=== PATIENT | male | born 1965 | race African-American/Black ===

== ENCOUNTER 2016-12-26 16:06 | Inpatient (IN) | payer SELFPAY ==
[~2016-12-26] VITALS: Ht 175.3 cm; Wt 109.4 kg
[2016-12-26] VITALS (25 sets, daily range): BP systolic 107–168; BP diastolic 58–102
[2016-12-26] MEDS ORDERED: ONDANSETRON HCL 4 MG/2 ML VIAL ONE (16:12)
[2016-12-26] MEDS ORDERED: MEPERIDINE HCL (25 MG/ML) 1ML VIAL ONE (16:12)
[2016-12-26] MEDS ORDERED: IODIXANOL 320MG/ML 100ML BTL IV ONE (16:22)
[2016-12-26] MEDS ORDERED: LIDOCAINE 2%HCL (LOCAL ANESTH.) INJ 20ML MDV ONE (16:23)
[2016-12-26] MEDS ORDERED: fentaNYL CITRATE 100 MCG/2 ML VL ONE (16:35)
[2016-12-26] MEDS ORDERED: diphenhdrAMINE HCL 50 MG/1 ML VL ONE (16:35)
[2016-12-26] MEDS ORDERED: ANGIOMAX 250 MG VIAL IV ONE ×2 (16:35→17:11)
[2016-12-26] MEDS ORDERED: methylPREDNISolone SOD SUCC 125 MG/2 ML VL ONE (16:35)
[2016-12-26] MEDS ORDERED: MIDAZOLAM HCL 1MG/1ML-2 ML VIAL ONE (16:36)
[2016-12-26] MEDS ORDERED: EPTIFIBATIDE INJ (2MG/ML) 10ML VIAL IV ONE (16:36)
[2016-12-26] MEDS ORDERED: SODIUM CHL 0.9% 50 ML ONE (16:36)
[2016-12-26] MEDS ORDERED: FAMOTIDINE (10MG/ML) 2ML VL IV ONE (16:38)
[2016-12-26] MEDS ORDERED: NOREPINEPHRINE BITARTRATE 250 ML IV ONE (16:52)
[2016-12-26] MEDS ORDERED: ATROPINE SULF 0.5 MG/5ML SYR ONE (16:59)
[2016-12-26 17:03] LABS: Albumin 3.3 g/dL (3.4-5.0); Bilirubin, Total 0.5 mg/dL (0.2-1.0); Calcium 8.8 mg/dL (8.5-10.1)
[2016-12-26] MEDS ORDERED: ASPirin 325 MG TAB ONE (17:06)
[2016-12-26] MEDS ORDERED: CLOPIDOGREL 300 MG TAB ONE (17:06)
[2016-12-26] MEDS ORDERED: SODIUM CHL 0.9% 100 ML ONE (17:11)
[2016-12-26 17:12] LABS: Basophils # (auto) 0.1 uL; Basophils % (auto) 0.7 % (0.0-2.0); CONDITION Y; DEFINITIVE SEE PRINTOUT; Eosinophils # (auto) 0.5 uL; Eosinophils % (auto) 3.1 % (0.0-7.0); Hematocrit 39.4 % (41.0-53.0); Hemoglobin 13.2 g/dL (13.5-17.5); Lymphocytes # (auto) 7.5 uL; Lymphocytes % (auto) 48.4 % (10.0-50.0); Mean Corpuscular Hgb Conc. 33.6 g/dL (32.0-36.0); Mean Corpuscular Volume 92.3 fL (80.0-100.0); Mean Platelet Volume 9.1 fL (7.4-10.4); Monocytes # (auto) 1.4 uL; Neutrophils % (auto) 38.8 % (37.0-80.0); Platelet Count (auto) 357 10^3/uL (140-450); Red Cell Distribution Width 13.8 % (11.6-16.0); White Blood Cell 15.5 10^3/uL (4.4-10.8)
[2016-12-26 17:25] LABS: INR 0.96 (0.9-1.15); Partial Thromboplastin Time 30.3 sec (22.64-33.71); Prothrombin Time 10.5 sec (9.37-12.3)
[2016-12-26 17:28] LABS: Potassium 3.2 mmol/L (3.5-5.1)
[2016-12-26] MEDS ORDERED: NITROGLYCERIN 0.4 MG SL TAB SL PRN (17:45)
[2016-12-26] MEDS ORDERED: MORPHINE SULF INJ 2 MG/ML SYRINGE 1ML IV PRN ×2 (17:45→19:30)
[2016-12-26] MEDS ORDERED: NOREPINEPHRINE BITARTRATE 250 ML IV SCH (17:45)
[2016-12-26] MEDS ORDERED: ONDANSETRON HCL 4 MG/2 ML VIAL IV PRN (18:00)
[2016-12-26] MEDS ORDERED: POTASSIUM CHL 20 Meq TABLET PO ONE ×2 (18:15→23:00)
[2016-12-26] MEDS: ATORVASTATIN 20 MG TAB PO SCH (22:24)
[2016-12-26] MEDS ORDERED: POTASSIUM CHL 10% (20 MEQ/15ML) ORAL SOLN PO ONE (23:00)
[2016-12-26 23:07] LABS: Magnesium 2.3 mg/dL (1.6-2.6)
[2016-12-26 23:11] LABS: B-Type Natriuretic Peptide 18.94 pg/mL (0-100)
[2016-12-26 23:12] LABS: Temperature: 24.1 C (20.0-25.0)
[2016-12-27] VITALS (95 sets, daily range): BP systolic 105–163; BP diastolic 61–104
[2016-12-27] MEDS ORDERED: POTASSIUM CHL 10% (20 MEQ/15ML) ORAL SOLN PO ONE (00:15)
[2016-12-27] MEDS: NITROGLYCERIN 50MG/250ML 250 ML IV SCH (02:39)
[2016-12-27 03:19] LABS: Basophils # (auto) 0 uL; Basophils % (auto) 0.1 % (0.0-2.0); CONDITION Y; Eosinophils # (auto) 0 uL; Hematocrit 37.9 % (41.0-53.0); Hemoglobin 12.7 g/dL (13.5-17.5); Lymphocytes # (auto) 0.8 uL; Lymphocytes % (auto) 6.7 % (10.0-50.0); Mean Corpuscular Hemoglobin 31.2 pg (28.0-32.0); Mean Corpuscular Hgb Conc. 33.4 g/dL (32.0-36.0); Mean Corpuscular Volume 93.4 fL (80.0-100.0); Mean Platelet Volume 8.1 fL (7.4-10.4); Monocytes # (auto) 0.1 uL; Monocytes % (auto) 0.6 % (0.0-12.0); Neutrophils # (auto) 11.1 uL; Neutrophils % (auto) 92.6 % (37.0-80.0); Platelet Count (auto) 297 10^3/uL (140-450)
[2016-12-27 03:43] LABS: Albumin 3.1 g/dL (3.4-5.0)
[2016-12-27 03:45] LABS: BUN/Creatinine Ratio 13.8
[2016-12-27 03:48] LABS: Bilirubin, Total 0.4 mg/dL (0.2-1.0); Total Protein 7.3 g/dL (6.4-8.2)
[2016-12-27] MEDS: HYDROmorphone HCL 2 MG/ML VL IV PRN ×4 (04:00→21:25)
[2016-12-27] MEDS ORDERED: POTASSIUM CHL 10% (20 MEQ/15ML) ORAL SOLN GT ONE (04:00)
[2016-12-27] MEDS ORDERED: FUROSEMIDE 20 MG/2 ML VIAL IV ONE (05:15)
[2016-12-27] MEDS ORDERED: FUROSEMIDE INJECTION 10 ML ONE (05:30)
[2016-12-27] MEDS: ENALAPRIL MALEATE 2.5 MG TAB PO SCH ×3 (06:00→22:00)
[2016-12-27 06:01] LABS: B-Type Natriuretic Peptide 62.78 pg/mL (0-100)
[2016-12-27 06:04] LABS: Temperature: 23.5 C (20.0-25.0)
[2016-12-27] MEDS: BOOST PLUS 8 ounce PO SCH ×3 (08:00→18:00)
[2016-12-27] MEDS: ASPirin 81 mg TAB PO SCH (09:52)
[2016-12-27] MEDS: CLOPIDOGREL BISULFATE 75 MG TAB PO SCH (09:53)
[2016-12-27] MEDS ORDERED: PANTOPRAZOLE SODIUM 40 MG/10 ML VIAL IV SCH (10:00)
[2016-12-27 11:02] LABS: BUN/Creatinine Ratio 15.9; Calcium 8.8 mg/dL (8.5-10.1); Magnesium 2.2 mg/dL (1.6-2.6)
[2016-12-27] MEDS ORDERED: KETOROLAC TROMETH 30 MG/ML 1ML VIAL IV ONE (11:30)
[2016-12-27 11:35] LABS: Potassium 4.6 mmol/L (3.5-5.1)
[2016-12-27] MEDS ORDERED: ALUM & MAG HYDROX-SIMETH LIQ(MAALOX) 30 ML PO PRN (19:00)
[2016-12-27] MEDS ORDERED: ALUM & MAG HYDROX-SIMETH LIQ(MAALOX) 30 ML PO ONE (19:00)
[2016-12-27] MEDS: ONDANSETRON HCL 4 MG/2 ML VIAL IV PRN (21:25)
[2016-12-27] MEDS: ATORVASTATIN 20 MG TAB PO SCH (22:23)
[2016-12-28] VITALS (73 sets, daily range): BP systolic 93–162; BP diastolic 48–107
[2016-12-28] MEDS: HYDROcodone-ACET 5/325MG TAB PO PRN ×2 (00:46→07:50)
[2016-12-28] MEDS: NITROGLYCERIN 50MG/250ML 250 ML IV SCH (02:15)
[2016-12-28 04:06] LABS: Basophils # (auto) 0 uL; Basophils % (auto) 0.2 % (0.0-2.0); CONDITION Y; Eosinophils # (auto) 0.1 uL; Eosinophils % (auto) 0.3 % (0.0-7.0); Hematocrit 38.3 % (41.0-53.0); Lymphocytes # (auto) 4.2 uL; Lymphocytes % (auto) 17.4 % (10.0-50.0); Mean Corpuscular Hemoglobin 31.4 pg (28.0-32.0); Mean Corpuscular Hgb Conc. 33.8 g/dL (32.0-36.0); Mean Corpuscular Volume 92.9 fL (80.0-100.0); Mean Platelet Volume 8.4 fL (7.4-10.4); Monocytes # (auto) 1.6 uL; Monocytes % (auto) 6.5 % (0.0-12.0); Neutrophils # (auto) 18.3 uL; Neutrophils % (auto) 75.6 % (37.0-80.0); Platelet Count (auto) 322 10^3/uL (140-450); Red Cell Distribution Width 13.6 % (11.6-16.0); White Blood Cell 24.2 10^3/uL (4.4-10.8)
[2016-12-28 04:48] LABS: BUN/Creatinine Ratio 14.1; Calcium 8.8 mg/dL (8.5-10.1); Magnesium 2.4 mg/dL (1.6-2.6); Potassium 3.9 mmol/L (3.5-5.1)
[2016-12-28] MEDS: BOOST PLUS 8 ounce PO SCH ×3 (08:00→18:00)
[2016-12-28] MEDS: PANTOPRAZOLE 40 MG TAB PO SCH (09:56)
[2016-12-28] MEDS: ASPirin 81 mg TAB PO SCH (09:56)
[2016-12-28] MEDS: CLOPIDOGREL BISULFATE 75 MG TAB PO SCH (09:56)
[2016-12-28] MEDS: ENALAPRIL MALEATE 2.5 MG TAB PO SCH ×2 (09:57→21:35)
[2016-12-28] MEDS: HYDROmorphone HCL 2 MG/ML VL IV PRN (12:20)
[2016-12-28] MEDS ORDERED: ZOLPIDEM TARTRATE 5 MG TAB PO PRN (12:30)
[2016-12-28] MEDS ORDERED: METOPROLOL TARTRATE 25 MG TAB PO ONE (12:30)
[2016-12-28] MEDS: ONDANSETRON HCL 4 MG/2 ML VIAL IV PRN (15:35)
[2016-12-28] MEDS: ATORVASTATIN 20 MG TAB PO SCH (21:34)
[2016-12-28] MEDS: METOPROLOL TARTRATE 25 MG TAB PO SCH (21:36)
[2016-12-28] MEDS ORDERED: PRAMIPEXOLE DIHYDROCHLORIDE MO 0.25 MG TAB PO SCH (22:00)
[2016-12-29 05:00] VITALS: BP 102/67
[2016-12-29 06:12] LABS: Basophils # (auto) 0.1 uL; Basophils % (auto) 0.3 % (0.0-2.0); CONDITION Y; Eosinophils # (auto) 0.3 uL; Eosinophils % (auto) 1.7 % (0.0-7.0); Hematocrit 41.9 % (41.0-53.0); Lymphocytes # (auto) 4.7 uL; Lymphocytes % (auto) 24.7 % (10.0-50.0); Mean Corpuscular Hemoglobin 31.2 pg (28.0-32.0); Mean Corpuscular Hgb Conc. 33.4 g/dL (32.0-36.0); Mean Corpuscular Volume 93.3 fL (80.0-100.0); Mean Platelet Volume 8.4 fL (7.4-10.4); Monocytes # (auto) 1.6 uL; Monocytes % (auto) 8.3 % (0.0-12.0); Neutrophils # (auto) 12.4 uL; Platelet Count (auto) 303 10^3/uL (140-450); Red Cell Distribution Width 13.8 % (11.6-16.0); White Blood Cell 19.1 10^3/uL (4.4-10.8)
[2016-12-29 06:31] LABS: Calcium 8.6 mg/dL (8.5-10.1)
[2016-12-29 06:33] LABS: BUN/Creatinine Ratio 16.9
[2016-12-29] MEDS: BOOST PLUS 8 ounce PO SCH ×2 (08:00→12:14)
[2016-12-29 08:43] LABS: Potassium 4.1 mmol/L (3.5-5.1)
[2016-12-29 09:00] VITALS: BP 114/68
[2016-12-29] MEDS: HYDROcodone-ACET 5/325MG TAB PO PRN (09:46)
[2016-12-29] MEDS: PANTOPRAZOLE 40 MG TAB PO SCH (09:46)
[2016-12-29] MEDS: ENALAPRIL MALEATE 2.5 MG TAB PO SCH (09:47)
[2016-12-29] MEDS: CLOPIDOGREL BISULFATE 75 MG TAB PO SCH (09:48)
[2016-12-29] MEDS: METOPROLOL TARTRATE 25 MG TAB PO SCH (09:48)
[2016-12-29] MEDS: ASPirin 81 mg TAB PO SCH (09:48)
[2016-12-29 12:28] VITALS: BP 114/68
[2016-12-29 13:00] VITALS: BP 101/52
== END 2016-12-29 15:04 | disposition home or self-care (01) | DRG 246 ==
LOC: ER 16:10 → CATH 16:56 → EDBD 16:56 → ICU WEST 16:57 → TELE-WESTW 12-28 21:05
PROVIDERS: ADMIT Internal Medicine Cardiovascular Disease; ATTEND Internal Medicine
PROC: 027034Z Dilation of Coronary Artery, One Artery with Drug-eluting Intraluminal Device, Percutaneous Approach (ICD-10-PCS; principal; 2016-12-26)
PROC: 4A023N7 Measurement of Cardiac Sampling and Pressure, Left Heart, Percutaneous Approach (ICD-10-PCS; 2016-12-26)
PROC: B2111ZZ Fluoroscopy of Multiple Coronary Arteries using Low Osmolar Contrast (ICD-10-PCS; 2016-12-26)
PROC: B2151ZZ Fluoroscopy of Left Heart using Low Osmolar Contrast (ICD-10-PCS; 2016-12-26)
DX: I21.3 ST elevation (STEMI) myocardial infarction of unspecified site (principal); I50.41 Acute combined systolic (congestive) and diastolic (congestive) heart failure; E44.1 Mild protein-calorie malnutrition; I25.10 Atherosclerotic heart disease of native coronary artery without angina pectoris; F41.9 Anxiety disorder, unspecified; F17.210 Nicotine dependence, cigarettes, uncomplicated; E88.09 Other disorders of plasma-protein metabolism, not elsewhere classified; E87.6 Hypokalemia; E78.5 Hyperlipidemia, unspecified; I25.82 Chronic total occlusion of coronary artery; E66.9 Obesity, unspecified; D63.8 Anemia in other chronic diseases classified elsewhere; Z79.82 Long term (current) use of aspirin; Z82.49 Family history of ischemic heart disease and other diseases of the circulatory system; Z83.3 Family history of diabetes mellitus; Z91.14 Patient's other noncompliance with medication regimen; I25.2 Old myocardial infarction; Z79.02 Long term (current) use of antithrombotics/antiplatelets; Z79.899 Other long term (current) drug therapy; Z68.35 Body mass index [BMI] 35.0-35.9, adult
CPT/HCPCS: 36415; 71010; 80048; 80053; 80061; 83036; 83735; 83880; 84439; 84443; 84481; 84484; 85025; 85610; 85730; 86850; 86900; 86901; 87070; 87081; 87205; 92928; 93005; 93306; 93458; 96374; 99152; C1874; C9113; J0461; J1885; J2250; J2405; J3490; Q9967

== ENCOUNTER 2017-05-01 16:49 | Emergency (ER) | payer SELFPAY ==
[~2017-05-01] VITALS: Ht 175.3 cm; Wt 104.3 kg
[2017-05-01 18:03] LABS: Basophils # (auto) 0.1 uL; Basophils % (auto) 0.7 % (0.0-2.0); Eosinophils # (auto) 0.5 uL; Eosinophils % (auto) 4.2 % (0.0-7.0); Hematocrit 36.6 % (41.0-53.0); Hemoglobin 12.2 g/dL (13.5-17.5); Lymphocytes # (auto) 4.9 uL; Lymphocytes % (auto) 43.4 % (10.0-50.0); Mean Corpuscular Hemoglobin 31.7 pg (28.0-32.0); Mean Corpuscular Hgb Conc. 33.5 g/dL (32.0-36.0); Mean Corpuscular Volume 94.7 fL (80.0-100.0); Mean Platelet Volume 7.1 fL (6.9-10.8); Monocytes # (auto) 0.7 uL; Monocytes % (auto) 6.6 % (0.0-12.0); Neutrophils # (auto) 5.1 uL; Neutrophils % (auto) 45.1 % (37.0-80.0); Nucleated Red Blood Cells % 0.1 %; Platelet Count (auto) 272 10^3/uL (140-450); Red Cell Distribution Width 13.5 % (11.8-14.3); White Blood Cell 11.3 10^3/uL (4.4-10.8)
[2017-05-01 18:22] LABS: Albumin 3.2 g/dL (3.4-5.0); Alkaline Phosphatase 85 U/L (45-117); Anion Gap 7 (5-15); Aspartate Aminotransferase 17 U/L (15-37); BUN/Creatinine Ratio 10.5; Bilirubin, Total 0.4 mg/dL (0.2-1.0); Blood Urea Nitrogen 8 mg/dL (7-18); Calcium 8.5 mg/dL (8.5-10.1); Carbon Dioxide 26 mmol/L (21-32); Chloride 108 mmol/L (98-107); GFR African American 137 mL/min; GFR Non-African American 114 mL/min; Glucose 124 mg/dL (74-106); Magnesium 2.3 mg/dL (1.6-2.6); Potassium 3.6 mmol/L (3.5-5.1); Sodium 141 mmol/L (136-145); Total Protein 7.3 g/dL (6.4-8.2)
[2017-05-01 20:19] LABS: Urine Bilirubin Negative (Negative); Urine Blood Negative /uL (Negative); Urine Color Yellow (Yellow); Urine Glucose Normal (Normal); Urine Ketone Negative (Negative); Urine Mucus FEW (None Seen); Urine Nitrite Negative (Negative); Urine RBC <1 /hpf (0 - 3); Urine Squamous Epithelial Cell FEW /hpf (<5); Urine pH 5.5 (5.0-8.0)
[2017-05-01 20:50] VITALS: BP 146/94
== END 2017-05-01 22:36 | disposition home or self-care (01) ==
LOC: ER 17:05
DX: R07.89 Other chest pain (principal); F17.210 Nicotine dependence, cigarettes, uncomplicated; I25.2 Old myocardial infarction; I10 Essential (primary) hypertension; E78.5 Hyperlipidemia, unspecified; Z86.73 Personal history of transient ischemic attack (TIA), and cerebral infarction without residual deficits; Z88.6 Allergy status to analgesic agent; Z76.0 Encounter for issue of repeat prescription; Z91.013 Allergy to seafood
CPT/HCPCS: 36415; 71020; 80053; 81001; 83735; 84484; 85025; 93005

== ENCOUNTER 2017-06-07 21:31 | Emergency (ER) | payer SELFPAY ==
[~2017-06-07] VITALS: Ht 175.3 cm; Wt 93.0 kg
[2017-06-07 21:38] VITALS: BP 145/90
[2017-06-07 22:19] LABS: Basophils # (auto) 0.1 uL; Basophils % (auto) 1.1 % (0.0-2.0); Eosinophils # (auto) 0.5 uL; Eosinophils % (auto) 5.8 % (0.0-7.0); Hematocrit 38.7 % (41.0-53.0); Hemoglobin 13.2 g/dL (13.5-17.5); Lymphocytes # (auto) 3.8 uL; Lymphocytes % (auto) 40.8 % (10.0-50.0); Mean Corpuscular Hemoglobin 32.1 pg (28.0-32.0); Mean Corpuscular Hgb Conc. 34.1 g/dL (32.0-36.0); Mean Corpuscular Volume 94.2 fL (80.0-100.0); Mean Platelet Volume 7.3 fL (6.9-10.8); Monocytes # (auto) 0.7 uL; Monocytes % (auto) 7.6 % (0.0-12.0); Neutrophils # (auto) 4.2 uL; Neutrophils % (auto) 44.7 % (37.0-80.0); Nucleated Red Blood Cells % 0.2 %; Platelet Count (auto) 281 10^3/uL (140-450); Red Cell Distribution Width 13.3 % (11.8-14.3); White Blood Cell 9.3 10^3/uL (4.4-10.8)
[2017-06-07 22:20] LABS: Urine Bilirubin Negative (Negative); Urine Blood Negative /uL (Negative); Urine Color Yellow (Yellow); Urine Glucose Normal (Normal); Urine Ketone Negative (Negative); Urine Mucus FEW (None Seen); Urine Nitrite Negative (Negative); Urine RBC <1 /hpf (0 - 3); Urine Squamous Epithelial Cell FEW /hpf (<5); Urine pH 5.5 (5.0-8.0)
[2017-06-07 22:31] LABS: Magnesium 2.3 mg/dL (1.6-2.6)
[2017-06-07 22:34] LABS: INR 0.97 (0.9-1.15); Partial Thromboplastin Time 30.3 sec (22.64-33.71); Prothrombin Time 10.6 sec (9.37-12.3)
[2017-06-07 22:54] LABS: Albumin 3.6 g/dL (3.4-5.0); BUN/Creatinine Ratio 14.3; Bilirubin, Total 0.6 mg/dL (0.2-1.0); Calcium 8.6 mg/dL (8.5-10.1); Potassium 3.7 mmol/L (3.5-5.1)
[2017-06-07 23:09] LABS: B-Type Natriuretic Peptide 19.5 pg/mL (0-100)
[2017-06-07 23:12] LABS: Temperature: 22.1 C (20.0-25.0)
== END 2017-06-08 00:18 | disposition left against medical advice (07) ==
LOC: ER 21:31
DX: R06.02 Shortness of breath (principal); Z53.21 Procedure and treatment not carried out due to patient leaving prior to being seen by health care provider
CPT/HCPCS: 36415; 71020; 80053; 81001; 83735; 83880; 84484; 85025; 85610; 85730; 93005

== ENCOUNTER 2017-06-14 12:00 | Emergency (ER) | payer SELFPAY ==
[~2017-06-14] VITALS: Ht 175.3 cm; Wt 97.5 kg
[2017-06-14 13:35] LABS: Basophils # (auto) 0.1 uL; Basophils % (auto) 1.2 % (0.0-2.0); Eosinophils # (auto) 0.4 uL; Eosinophils % (auto) 4.1 % (0.0-7.0); Hematocrit 39.2 % (41.0-53.0); Hemoglobin 13.2 g/dL (13.5-17.5); Lymphocytes # (auto) 3.3 uL; Lymphocytes % (auto) 34.8 % (10.0-50.0); Mean Corpuscular Hemoglobin 31.9 pg (28.0-32.0); Mean Corpuscular Hgb Conc. 33.8 g/dL (32.0-36.0); Mean Corpuscular Volume 94.6 fL (80.0-100.0); Monocytes # (auto) 0.7 uL; Monocytes % (auto) 7.1 % (0.0-12.0); Neutrophils % (auto) 52.8 % (37.0-80.0); Nucleated Red Blood Cells % 0.1 %; Platelet Count (auto) 278 10^3/uL (140-450); Red Blood Cells 4.14 10^6/uL (4.5-5.90); Red Cell Distribution Width 13.3 % (11.8-14.3); White Blood Cell 9.5 10^3/uL (4.4-10.8)
[2017-06-14 14:15] LABS: Albumin 3.3 g/dL (3.4-5.0); BUN/Creatinine Ratio 12.9; Bilirubin, Total 0.5 mg/dL (0.2-1.0); Calcium 8.6 mg/dL (8.5-10.1); Total Protein 7.6 g/dL (6.4-8.2)
[2017-06-14 14:40] VITALS: BP 138/78
== END 2017-06-14 15:50 | disposition left against medical advice (07) ==
LOC: ER 12:00
DX: R07.89 Other chest pain (principal); T88.7XXA Unspecified adverse effect of drug or medicament, initial encounter; F17.210 Nicotine dependence, cigarettes, uncomplicated; E78.5 Hyperlipidemia, unspecified; I10 Essential (primary) hypertension; I25.2 Old myocardial infarction; Z88.6 Allergy status to analgesic agent; Z91.013 Allergy to seafood; Z53.29 Procedure and treatment not carried out because of patient's decision for other reasons; X58.XXXA Exposure to other specified factors, initial encounter
CPT/HCPCS: 36415; 71020; 80053; 84484; 85025; 93005

== ENCOUNTER 2017-09-26 10:04 | Emergency (ER) | payer SELFPAY ==
[~2017-09-26] VITALS: Ht 175.3 cm; Wt 99.8 kg
[2017-09-26 11:09] LABS: Basophils # (auto) 0 uL; Basophils % (auto) 0.3 % (0.0-2.0); Eosinophils # (auto) 0.4 uL; Eosinophils % (auto) 3.8 % (0.0-7.0); Hematocrit 40.5 % (41.0-53.0); Hemoglobin 13.9 g/dL (13.5-17.5); Lymphocytes # (auto) 3.9 uL; Lymphocytes % (auto) 37.2 % (10.0-50.0); Mean Corpuscular Hemoglobin 32.1 pg (28.0-32.0); Mean Corpuscular Hgb Conc. 34.3 g/dL (32.0-36.0); Mean Corpuscular Volume 93.6 fL (80.0-100.0); Monocytes # (auto) 0.8 uL; Monocytes % (auto) 7.4 % (0.0-12.0); Neutrophils # (auto) 5.4 uL; Neutrophils % (auto) 51.3 % (37.0-80.0); Nucleated Red Blood Cells % 0.2 %; Platelet Count (auto) 278 10^3/uL (140-450); Red Blood Cells 4.33 10^6/uL (4.5-5.90); Red Cell Distribution Width 13.7 % (11.8-14.3); White Blood Cell 10.6 10^3/uL (4.4-10.8)
[2017-09-26 11:36] LABS: Albumin 3.3 g/dL (3.4-5.0); Alkaline Phosphatase 86 U/L (45-117); Anion Gap 6 (5-15); Aspartate Aminotransferase 42 U/L (15-37); BUN/Creatinine Ratio 10.5; Bilirubin, Total 0.6 mg/dL (0.2-1.0); Blood Urea Nitrogen 10 mg/dL (7-18); Calcium 8.5 mg/dL (8.5-10.1); Carbon Dioxide 24 mmol/L (21-32); Chloride 106 mmol/L (98-107); GFR African American 106 mL/min; GFR Non-African American 88 mL/min; Glucose 113 mg/dL (74-106); Magnesium 2.6 mg/dL (1.6-2.6); Potassium 4.8 mmol/L (3.5-5.1); Sodium 136 mmol/L (136-145); Total Protein 8.1 g/dL (6.4-8.2)
[2017-09-26 11:38] LABS: Alcohol, Urine < 3.0 mg/dL (0-5); Amphetamine Screen, Urine NEGATIVE (NEGATIVE); Barbiturate Scree,Urine NEGATIVE (NEGATIVE); Benzodiazephine Screen, Urine NEGATIVE (NEGATIVE); Cannabinoid Screen, Urine POSITIVE (NEGATIVE); Cocaine Screen, Urine NEGATIVE (NEGATIVE); Opiate Scree,Urine POSITIVE (NEGATIVE); Phencyclidine Screen, Urine NEGATIVE (NEGATIVE)
[2017-09-26 11:38] LABS: Alanine Aminotransferase 28 U/L (16-61)
[2017-09-26 11:40] LABS: Urine Bacteria NONE SEEN /hpf (None Seen); Urine Blood Negative /uL (Negative); Urine Specific Gravity 1.005 (1.001-1.035); Urine WBC <1 /hpf (0 - 3)
[2017-09-26] MEDS ORDERED: SODIUM CHLORIDE 0.9% 1,000 ML IV ONE (15:34)
[2017-09-26] MEDS ORDERED: CLOPIDOGREL BISULFATE 75 MG TAB PO ONE (15:45)
[2017-09-26] MEDS ORDERED: METOPROLOL TARTRATE 25 MG TAB PO ONE (15:45)
[2017-09-26 16:04] VITALS: BP 100/70
== END 2017-09-26 17:27 | disposition home or self-care (01) ==
LOC: ER 10:04
DX: F15.93 Other stimulant use, unspecified with withdrawal (principal); R00.2 Palpitations; I25.10 Atherosclerotic heart disease of native coronary artery without angina pectoris; E78.5 Hyperlipidemia, unspecified; I10 Essential (primary) hypertension; I25.2 Old myocardial infarction; E44.1 Mild protein-calorie malnutrition; Z68.32 Body mass index [BMI] 32.0-32.9, adult; Z88.6 Allergy status to analgesic agent
CPT/HCPCS: 36415; 71046; 80053; 80307; 81001; 83735; 83880; 84443; 84484; 85025; 85379; 93005; 94761; 96360

== ENCOUNTER 2017-12-03 19:51 | Emergency (ER) | payer SELFPAY ==
[~2017-12-03] VITALS: Ht 175.3 cm; Wt 99.8 kg
[2017-12-03 20:59] LABS: Basophils # (auto) 0.2 uL; Basophils % (auto) 1.4 % (0.0-2.0); Eosinophils # (auto) 0.4 uL; Eosinophils % (auto) 3.9 % (0.0-7.0); Hematocrit 41.6 % (41.0-53.0); Hemoglobin 14.1 g/dL (13.5-17.5); Lymphocytes # (auto) 3.8 uL; Lymphocytes % (auto) 33.1 % (10.0-50.0); Mean Corpuscular Hemoglobin 31.8 pg (28.0-32.0); Mean Corpuscular Hgb Conc. 33.8 g/dL (32.0-36.0); Mean Corpuscular Volume 93.8 fL (80.0-100.0); Monocytes # (auto) 1.2 uL; Monocytes % (auto) 10.7 % (0.0-12.0); Neutrophils # (auto) 5.9 uL; Neutrophils % (auto) 50.9 % (37.0-80.0); Nucleated Red Blood Cells % 0.1 %; Platelet Count (auto) 271 10^3/uL (140-450); Red Blood Cells 4.43 10^6/uL (4.5-5.90); Red Cell Distribution Width 13.9 % (11.8-14.3); White Blood Cell 11.5 10^3/uL (4.4-10.8)
[2017-12-03 21:16] LABS: INR 0.97 (0.9-1.15); Partial Thromboplastin Time 32.5 sec (23.78-33.04); Prothrombin Time 10.4 sec (9.27-12.13)
[2017-12-03 21:22] LABS: Albumin 3.3 g/dL (3.4-5.0); Anion Gap 8 (5-15); BUN/Creatinine Ratio 10.9; Blood Urea Nitrogen 11 mg/dL (7-18); Calcium 8.5 mg/dL (8.5-10.1); Carbon Dioxide 28 mmol/L (21-32); Chloride 104 mmol/L (98-107); GFR African American 99 mL/min; GFR Non-African American 82 mL/min; Glucose 89 mg/dL (74-106); Potassium 4.2 mmol/L (3.5-5.1); Sodium 140 mmol/L (136-145)
[2017-12-03 21:31] LABS: Alanine Aminotransferase 26 U/L (16-61); Alkaline Phosphatase 83 U/L (45-117); Aspartate Aminotransferase 33 U/L (15-37); Bilirubin, Total 0.6 mg/dL (0.2-1.0); Total Protein 8.3 g/dL (6.4-8.2)
[2017-12-04 03:12] VITALS: BP 117/80
[2017-12-04 03:57] LABS: Urine Bacteria NONE SEEN /hpf (None Seen); Urine Blood Negative /uL (Negative); Urine Mucus FEW (None Seen); Urine Specific Gravity 1.013 (1.001-1.035); Urine WBC 1 /hpf (0 - 3)
[2017-12-04 04:19] LABS: Alcohol, Urine < 3.0 mg/dL (0-5); Amphetamine Screen, Urine NEGATIVE (NEGATIVE); Barbiturate Scree,Urine NEGATIVE (NEGATIVE); Benzodiazephine Screen, Urine NEGATIVE (NEGATIVE); Cannabinoid Screen, Urine POSITIVE (NEGATIVE); Cocaine Screen, Urine NEGATIVE (NEGATIVE); Opiate Scree,Urine POSITIVE (NEGATIVE); Phencyclidine Screen, Urine NEGATIVE (NEGATIVE)
== END 2017-12-04 03:35 | disposition home or self-care (01) ==
LOC: ER 19:51
DX: I20.9 Angina pectoris, unspecified (principal); I11.0 Hypertensive heart disease with heart failure; I50.9 Heart failure, unspecified; E78.5 Hyperlipidemia, unspecified; I25.2 Old myocardial infarction; Z86.73 Personal history of transient ischemic attack (TIA), and cerebral infarction without residual deficits; Z88.6 Allergy status to analgesic agent; Z91.013 Allergy to seafood; F12.10 Cannabis abuse, uncomplicated
CPT/HCPCS: 36415; 71046; 80053; 80307; 81001; 83880; 84484; 85025; 85610; 85730; 93005

== ENCOUNTER 2020-12-20 02:25 | Emergency (ER) | payer MEDICAID, OTHER ==
[~2020-12-20] VITALS: Ht 175.3 cm; Wt 108.9 kg
[2020-12-20 03:34] LABS: Basophils # (auto) 0.1 10 ^3/uL (0-0.2); Basophils % (auto) 1.4 % (0.0-2.0); Eosinophils # (auto) 0.3 10 ^3/uL (0-0.8); Hematocrit 36.6 % (41.0-53.0); Hemoglobin 12.6 g/dL (13.5-17.5); Lymphocytes % (auto) 34.8 % (10.0-50.0); Mean Corpuscular Hemoglobin 31.8 pg (28.0-32.0); Mean Corpuscular Hgb Conc. 34.4 g/dL (32.0-36.0); Mean Corpuscular Volume 92.5 fL (80.0-100.0); Monocytes # (auto) 0.8 10 ^3/uL (0-1.3); Monocytes % (auto) 8.9 % (0.0-12.0); Neutrophils # (auto) 4.5 10 ^3/uL (1.6-8.6); Neutrophils % (auto) 51.9 % (37.0-80.0); Platelet Count (auto) 240 10^3/uL (140-450); Red Blood Cells 3.96 10^6/uL (4.5-5.90); Red Cell Distribution Width 13.1 % (11.8-14.3); White Blood Cell 8.7 10^3/uL (4.4-10.8)
[2020-12-20 03:45] LABS: INR 1.06 (0.9-1.15); Partial Thromboplastin Time 30.8 sec (23.0-31.2)
[2020-12-20 05:49] VITALS: BP 111/54
== END 2020-12-20 05:52 | disposition home or self-care (01) ==
LOC: ER 02:25
DX: I83.892 Varicose veins of left lower extremity with other complications (principal); I11.0 Hypertensive heart disease with heart failure; I50.9 Heart failure, unspecified; I25.10 Atherosclerotic heart disease of native coronary artery without angina pectoris; E78.5 Hyperlipidemia, unspecified; F17.210 Nicotine dependence, cigarettes, uncomplicated; Z88.5 Allergy status to narcotic agent; Z91.013 Allergy to seafood
CPT/HCPCS: 36415; 85025; 85049; 85610; 85730; 86850; 86900; 86901

== ENCOUNTER 2020-12-20 21:31 | Emergency (ER) | payer MEDICAID, OTHER ==
[~2020-12-20] VITALS: Ht 175.3 cm; Wt 108.9 kg
[2020-12-20 21:31] VITALS: BP 120/73
[2020-12-20 22:19] LABS: Basophils # (auto) 0.1 10 ^3/uL (0-0.2); Basophils % (auto) 0.7 % (0.0-2.0); Eosinophils # (auto) 0.3 10 ^3/uL (0-0.8); Eosinophils % (auto) 4.3 % (0.0-7.0); Hematocrit 34.5 % (41.0-53.0); Hemoglobin 12.3 g/dL (13.5-17.5); Lymphocytes # (auto) 2.8 10 ^3/uL (0.4-5.4); Lymphocytes % (auto) 35.3 % (10.0-50.0); Mean Corpuscular Hemoglobin 32.9 pg (28.0-32.0); Mean Corpuscular Hgb Conc. 35.6 g/dL (32.0-36.0); Mean Corpuscular Volume 92.4 fL (80.0-100.0); Monocytes # (auto) 0.8 10 ^3/uL (0-1.3); Monocytes % (auto) 9.9 % (0.0-12.0); Neutrophils % (auto) 49.8 % (37.0-80.0); Nucleated Red Blood Cells % 0.1 %; Platelet Count (auto) 222 10^3/uL (140-450); Red Blood Cells 3.73 10^6/uL (4.5-5.90); Red Cell Distribution Width 12.9 % (11.8-14.3)
[2020-12-20 22:49] LABS: Albumin 3.2 g/dL (3.4-5.0); BUN/Creatinine Ratio 9.3; Calcium 8.4 mg/dL (8.5-10.1); Potassium 3.5 mmol/L (3.5-5.1)
[2020-12-20 22:52] LABS: Bilirubin, Total 0.8 mg/dL (0.2-1.0); Total Protein 7.6 g/dL (6.4-8.2)
== END 2020-12-21 01:17 | disposition left against medical advice (07) ==
LOC: ER 21:32
DX: M79.662 Pain in left lower leg (principal); I11.0 Hypertensive heart disease with heart failure; I50.9 Heart failure, unspecified; E78.5 Hyperlipidemia, unspecified; I25.2 Old myocardial infarction; F17.210 Nicotine dependence, cigarettes, uncomplicated; F12.10 Cannabis abuse, uncomplicated; Z88.6 Allergy status to analgesic agent; Z91.013 Allergy to seafood
CPT/HCPCS: 36415; 80053; 85025; 85049